=== PATIENT | male | born 1960 | race Caucasian/White ===

== ENCOUNTER 2018-05-11 11:39 | Day surgery (SDC) | payer BC ==
[2018-05-09 11:37] LABS: BASOPHILS # (AUTO) 0.1 X10'3 (0-0.2); BASOPHILS % (AUTO) 1.1 % (0-1); EOSINOPHILS # (AUTO) 0.1 X10'3 (0-0.9); EOSINOPHILS % (AUTO) 1.4 % (0-6); LYMPHOCYTES # (AUTO) 2.1 X10'3 (1.1-4.8); LYMPHOCYTES % (AUTO) 20.2 % (21-51); MEAN CORPUSCULAR HEMOGLOBIN 30.6 PG (27.0-31.0); MEAN CORPUSCULAR HGB CONC 33.9 % (33.0-36.5); MEAN CORPUSCULAR VOLUME 90.3 FL (78-98); MONOCYTES # (AUTO) 0.6 X10'3 (0-0.9); MONOCYTES % (AUTO) 5.8 % (2-12); NEUTROPHILS # (AUTO) 7.4 X10'3 (1.8-7.7); NEUTROPHILS % (AUTO) 71.5 % (42-75); PRE OP HEMATOCRIT 44.8 % (42.0-52.0); PRE OP HEMOGLOBIN 15.2 g/dL (14.0-17.9); PRE OP PLATELET COUNT 284 X10'3 (140-440); RED BLOOD COUNT 4.96 X10'6 (4.70-6.10); RED CELL DISTRIBUTION WIDTH 13.3 % (11.5-14.5)
[2018-05-09 11:38] LABS: CLARITY,URINE CLEAR (Clear); COLOR,URINE YELLOW (Yellow); GLUCOSE, URINE NEGATIVE (Neg); KETONES,URINE NEGATIVE (Neg); LEUKOCYTE ESTERASE ,URINE NEGATIVE (Neg); NITRITES, URINE NEGATIVE (Neg); OCCULT BLOOD,URINE NEGATIVE (Neg); PH,URINE 6.5 (4.8-8.0); PROTEIN,URINE NEGATIVE (Neg)
[2018-05-09 11:43] LABS: UA COLLECTION TYPE CLN CATCH MIDSTREAM
[2018-05-09 11:57] LABS: ALBUMIN 3.6 G/DL (3.4-5.0); ALBUMIN/GLOBULIN RATIO 0.9 (1.1-1.5); ALKALINE PHOSPHATASE 185 IU/L (46-116); BLOOD UREA NITROGEN 24 MG/DL (7-18); BUN/CREATININE RATIO 20.9 (5.4-32.0); CALCIUM 8.9 MG/DL (8.5-10.1); CHLORIDE 105 MMOL/L (99-107); CREATININE 1.15 MG/DL (0.60-1.10); PRE OP ANION GAP 10 (8-16); PRE OP AST 29 U/L (10-37); PRE OP BILIRUB, TOTAL 0.4 MG/DL (0.0-1.0); PRE OP GLUCOSE 97 MG/DL (70-104); PRE OP POTASSIUM 3.6 MMOL/L (3.4-5.1); PRE OP SODIUM 142 MMOL/L (135-145); TOTAL CARBON DIOXIDE 27.1 MMOL/L (24-32); TOTAL PROTEIN 7.7 G/DL (6.4-8.2); eGFR 65 ML/MIN
[2018-05-09 11:59] LABS: PRE OP ALT 82 U/L (30-65)
[~2018-05-11] VITALS: Ht 180.3 cm; Wt 104.3 kg
[2018-05-11] VITALS (10 sets, daily range): BP systolic 95–146; BP diastolic 56–86
[~2018-05-11 11:39] MED LIST: ALBU8.5H8 INH; MOME13HF INH; MULT-933 PO; cefazolin/dext.iso 2gm/100 ML IV ONE; famotidine 20mg tablet PO ONE; ringers solution, lacted 1,000 ML IV SCH
[2018-05-11] MEDS ORDERED: ceFAZolin 1000mg inj ONE ×2 (12:37→12:47)
[2018-05-11] MEDS ORDERED: BUPIVAcaine/PF 2.5mg/ml (0.25%) 10ml vial ONE (12:38)
[2018-05-11] MEDS ORDERED: fentaNYL/PF 50MCG/1 ML 2ML syringe ONE (13:38)
[2018-05-11] MEDS ORDERED: midazolam 2 mg/2 ml injection ONE (13:38)
[2018-05-11] MEDS ORDERED: propofol inj 20 ML IV ONE (13:39)
[2018-05-11] MEDS ORDERED: glycopyrrolate 0.2mg/ml inj ONE (13:39)
[2018-05-11] MEDS ORDERED: neostigmine methylsulfate 1 MG/ML 10ml vial ONE (13:40)
[2018-05-11] MEDS ORDERED: LIDOcaine 2% (20mg/ml) 5ml vial ONE (13:40)
[2018-05-11] MEDS ORDERED: dexamethasone sod phosphate 4mg/ml inj. ONE (13:40)
[2018-05-11] MEDS ORDERED: ondansetron/PF 4mg/2ml inj ONE (13:40)
[2018-05-11] MEDS ORDERED: rocuronium 10mg/ml inj IV ONE (13:40)
[2018-05-11] MEDS ORDERED: ringers solution, lacted 1,000 ML IV SCH (14:13)
[2018-05-11] MEDS ORDERED: hydrALAZINE 20mg/ml inj. IV PRN (14:15)
[2018-05-11] MEDS ORDERED: labetalol 20mg/4ml (5mg/ml) syringe IV PRN (14:15)
[2018-05-11] MEDS ORDERED: ondansetron/PF 4mg/2ml inj IV PRN (14:15)
[2018-05-11] MEDS ORDERED: morphine 4 MG/ML inj SYRINge IV PRN ×2 (14:15)
[2018-05-11] MEDS ORDERED: meperidine/PF 25mg/ml syringe IV PRN ×2 (14:15)
[2018-05-11] MEDS ORDERED: bacitracin 15gm ointment TP ONE (14:33)
[2018-05-11] MEDS ORDERED: labetalol 20mg/4ml (5mg/ml) syringe IV ONE (14:33)
--- NOTE | 2018-05-11 14:40 | NUR ---
Received from OR via [facility] , accompanied by Anesthesiologist BRENDA and report given by Anesthesiolgist. PATIENT WITH 20G PIV IN LEFT AC RUNNING LR AT 100. DENIES PAIN. 4 ABDOMINAL DRESSINGS PRESENT AND ARE CDI CURRENTLY. 10L MASK ON WITH 97% SATURATIONS. Addendum: 05/11/18 at 1454 by Colt Veliz RN, RN Amended: Links added.
--- NOTE | 2018-05-11 16:00 | NUR ---
ALL DC CRITERIA HAS BEEN MET. IV TAKEN OUT WITHOUT COMPLICATIONS. ALL INSTRUCTIONS COVERED AND ALL QUESTIONS ANSWERED. ABDOMINAL DRESSINGS CDI. OUT VIA WHEELCHAIR TO PERSONAL VEHICLE WHERE PATIENT WAS SECURED IN AND DRIVEN HOME BY FAMILY. PAIN AT A TOLERABLE LEVEL. PRESENT FOR ALL DC INSTRUCTIONS. Addendum: 05/11/18 at 1623 by Colt Veliz RN, RN Amended: Links added.
== END 2018-05-11 16:00 | disposition home or self-care (01) ==
LOC: PAS 11:39
PROVIDERS: ATTEND Surgery
DX: K42.0 Umbilical hernia with obstruction, without gangrene (principal); I48.91 Unspecified atrial fibrillation; E66.9 Obesity, unspecified; J44.9 Chronic obstructive pulmonary disease, unspecified; Z68.32 Body mass index [BMI] 32.0-32.9, adult; Z88.5 Allergy status to narcotic agent; Z87.442 Personal history of urinary calculi; Z87.01 Personal history of pneumonia (recurrent); Z98.890 Other specified postprocedural states; Z79.899 Other long term (current) drug therapy; Z82.3 Family history of stroke; Z82.49 Family history of ischemic heart disease and other diseases of the circulatory system
CPT/HCPCS: 36415; 49653; 71046; 80053; 81003; 82948; 85025; 93005; C1781; J0690; J1100; J2001; J2175; J2250; J2405; J2704; J2710; J3010; J3490; J7120; A7000; C1713; C1758

== ENCOUNTER 2018-05-16 09:22 | Emergency (ER) | payer BC ==
[~2018-05-16] VITALS: Ht 180.3 cm; Wt 86.0 kg
[~2018-05-16 09:22] MED LIST changes: -cefazolin/dext.iso 2gm/100 ML IV ONE; -famotidine 20mg tablet PO ONE; -ringers solution, lacted 1,000 ML IV SCH
[2018-05-16 09:25] VITALS: BP 137/79
[2018-05-16 09:46] LABS: BASOPHILS # (AUTO) 0.1 X10'3 (0-0.2); BASOPHILS % (AUTO) 1.1 % (0-1); EOSINOPHILS % (AUTO) 0.3 % (0-6); HEMATOCRIT 47.5 % (42.0-52.0); HEMOGLOBIN 16.3 g/dl (14.0-17.9); LYMPHOCYTES # (AUTO) 1.7 X10'3 (1.1-4.8); MEAN CORPUSCULAR HEMOGLOBIN 30.8 PG (27.0-31.0); MEAN CORPUSCULAR HGB CONC 34.4 g/dL (33.0-36.5); MEAN CORPUSCULAR VOLUME 89.5 FL (78-98); MONOCYTES % (AUTO) 7.6 % (2-12); PLATELET COUNT 387 X10'3 (140-440); RED BLOOD COUNT 5.31 X10'6 (4.70-6.10); RED CELL DISTRIBUTION WIDTH 13.1 % (11.5-14.5); WHITE BLOOD COUNT 12.8 X10'3 (4.5-11.0)
[2018-05-16 10:03] LABS: ALANINE AMINOTRANSFERASE 126 U/L (12-78); ALBUMIN 3.3 G/DL (3.4-5.0); ALBUMIN/GLOBULIN RATIO 0.6 (1.1-1.5); ALKALINE PHOSPHATASE 274 IU/L (46-116); ANION GAP 10 (8-16); ASPARTATE AMINO TRANSFERASE 33 U/L (10-37); BILIRUBIN,TOTAL 0.6 MG/DL (0.1-1.0); BLOOD UREA NITROGEN 19 MG/DL (7-18); BUN/CREATININE RATIO 16.1 (5.4-32.0); CALCIUM 9.4 MG/DL (8.5-10.1); CHLORIDE 100 MMOL/L (99-107); CREATININE 1.18 MG/DL (0.60-1.10); GLUCOSE 152 MG/DL (70-104); POTASSIUM 3.9 MMOL/L (3.5-5.1); SODIUM 135 MMOL/L (135-145); TOTAL CARBON DIOXIDE 25.4 MMOL/L (24-32); TOTAL PROTEIN 8.4 G/DL (6.4-8.2); eGFR 63 ML/MIN
[2018-05-16] MEDS ORDERED: SULF1TAB49 PO (10:25)
== END 2018-05-16 10:38 | disposition home or self-care (01) ==
LOC: ER 09:22
DX: T82.898A Other specified complication of vascular prosthetic devices, implants and grafts, initial encounter (principal); S40.022A Contusion of left upper arm, initial encounter; L03.114 Cellulitis of left upper limb; Z88.6 Allergy status to analgesic agent; X58.XXXA Exposure to other specified factors, initial encounter; Y93.89 Activity, other specified; Y92.89 Other specified places as the place of occurrence of the external cause; Y99.8 Other external cause status
CPT/HCPCS: 36415; 80053; 85025; 85651; 99283